=== PATIENT | female | born 1935 | race Caucasian/White ===

== ENCOUNTER → 2020-09-01 | Outpatient (CLI) | payer OTHER | LOC: RAD 12:49 | PROVIDERS: ATTEND Internal Medicine Pulmonary Disease | DX: J44.9 Chronic obstructive pulmonary disease, unspecified (principal) ==

== ENCOUNTER → 2020-10-05 | Outpatient (CLI) | payer OTHER ==
[2020-10-05 11:59] LABS: BE(vivo) 3.1 mmol/L (-2 to +3); HCO3 29.6 mmol/L (22.0-26.0); PCO2 53.7 mmHg (35.0-45.0); PO2 65.8 mmHg (80.0-100.0); pH 7.359 (7.360-7.450); sO2 91.9 % (92.0-98.0)
== END ==
LOC: PUL 11:29
PROVIDERS: ATTEND Internal Medicine Pulmonary Disease
DX: J44.1 Chronic obstructive pulmonary disease with (acute) exacerbation (principal); R06.00 Dyspnea, unspecified